=== PATIENT | male | born 1950 | race Caucasian/White ===

== ENCOUNTER 2022-01-20 06:06 | Emergency (ER) | payer MEDICARE, BC ==
[2022-01-20] MEDS ORDERED: Sodium Chloride 0.9% 1,000 ML IV SCH (06:30)
[2022-01-20] MEDS ORDERED: HYDROmorphone 1 MG/ML Syringe IVPUSH STA (06:30)
[2022-01-20] MEDS ORDERED: Ondansetron 4 MG/2 ML SDV IVPUSH ONE ×2 (06:30→08:10)
[2022-01-20] MEDS ORDERED: Iopamidol 612 MG/ML 100 ML Bottle IVPUSH ONE (06:49)
[2022-01-20] MEDS ORDERED: Sodium Chloride 0.9% 10 ML SDV FLUSH ONE (06:49)
[2022-01-20] MEDS ORDERED: Sodium Chloride 0.9% 100 ML IV SCH (07:00)
[2022-01-20] MEDS ORDERED: HYDROmorphone 1 MG/ML Syringe IVPUSH ONE (07:09)
[2022-01-20] MEDS ORDERED: Piperacillin/Tazobactam 4.5 GM in Sodium Chloride 0.9% 100 ML IV SCH (08:00)
[2022-01-20] MEDS ORDERED: Tamsulosin 0.4 MG Cap.ER PO ONE (08:01)
[2022-01-20] MEDS ORDERED: Acetaminophen/oxyCODONE 325-5 MG Tab PO ONE (08:43)
[2022-01-20] MEDS ORDERED: Sodium Chloride 0.9% 500 ML IV ONE (08:43)
[2022-01-20] MEDS ORDERED: Ondansetron 4 MG/2 ML SDV IVPUSH STA (09:05)
[2022-01-20] MEDS ORDERED: Ondansetron 4 MG/2 ML SDV ONE (09:07)
[2022-01-20 11:05] VITALS: BP 132/87; PULSE 88
== END 2022-01-20 11:06 | disposition home or self-care (01) ==
LOC: JD.ED 06:06
DX: N20.2 Calculus of kidney with calculus of ureter (principal); I10 Essential (primary) hypertension; N40.0 Benign prostatic hyperplasia without lower urinary tract symptoms; Z87.891 Personal history of nicotine dependence; Z79.899 Other long term (current) drug therapy
CPT/HCPCS: 36415; 74177; 80053; 81001; 83605; 85007; 85027; 96374; 96375; 96376; 99284; A9270; J1170; J2405; J3490; J7030; Q9967; 99285